=== PATIENT | male | born 1975 | race Caucasian/White ===

== ENCOUNTER 2022-05-12 11:43 | Day surgery (SDC) | payer BC ==
[2022-05-11 12:24] VITALS: BMI 23.1
[2022-05-12] MEDS ORDERED: PROPOFOL 40 ML ONE (13:41)
== END 2022-05-12 14:55 | disposition home or self-care (01) ==
LOC: CSHSDC 11:43
PROVIDERS: ATTEND Surgery
PROC: 0DJD8ZZ Inspection of Lower Intestinal Tract, Via Natural or Artificial Opening Endoscopic (ICD-10-PCS; principal; 2022-05-12)
DX: Z12.11 Encounter for screening for malignant neoplasm of colon (principal)
CPT/HCPCS: J2704